=== PATIENT | male | born 1975 | race African-American/Black ===

== ENCOUNTER → 2016-06-02 | Emergency (ER) | payer BC, OTHER ==
[~2016-06-02] MED LIST: IBUPROFEN 600 MG TABLET (FP) PO ONE; KETOROLAC TROMETHAMINE 30 MG/1 ML VIAL IVPUSH ONE; KETOROLAC TROMETHAMINE 30 MG/1 ML VIAL ONE
[2016-06-02 17:04] VITALS: BP 122/69; PULSE 62; TEMP 97.7
[2016-06-02 17:05] VITALS: BMI 33.1
--- NOTE | 2016-06-02 18:10 | PDOC ---
[id number] CHEST PAIN Time Seen by Provider: 06/02/16 17:25 History Source: Patient Exam Limitations: No Limitations - History of Present Illness Initial Comments: 06/02/16 18:10 40 yo M non-smoker with pmhx of HTN presents with with few hour history of worsening chest pain. He describes 6/10 constant non-radiating left sternal border chest pressure. No alleviating or aggravating factors. He states it is unrelated to activity. It has been off and on for over a year. He feels that it comes during times of emotional stress. Pain somewhat is reproducible with deep palpation. No significant family history of CAD or ASCVD. Denies SOB, diaphoresis, fevers, ZHOU, abd. pain, N/V. Presenting Symptoms: Chest Pain Timing/Duration: reports: constant Severity/Quality: reports: pressure Location: reports: substernal Chest Pain Radiation: reports: no radiation Activities at Onset: reports: no specific activity Prior Chest Pain/Cardiac Workup: denies: Pulmonary Embolism Past History - Travel Traveled outside of the country in the last 30 days: No Close contact w/someone who was outside of country & ill: No - Past Medical History Allergies/Adverse Reactions: Allergies Allergy/AdvReac Type Severity Reaction Status Date / Time Penicillins Allergy Verified 06/02/16 17:04 Home Medications: Ambulatory Orders NK [No Known Home Medication] 06/02/16 Suicide Attempt (Hx): No Other medical history: denies - Psycho/Social/Smoking Cessation Hx Anxiety: No Suicidal Ideation: No Smoking Status: No Smoking History: Former smoker Have you smoked in the past 12 months: No Number of Cigarettes Smoked Daily: 0 Information on smoking cessation initiated: No Hx Alcohol Use: No Drug/Substance Use Hx: No Substance Use Type: None Cardiac Specific PMH - Complaint Specific PMHX Cardiac Stent: No GERD: No Myocardial Infarction: No Review of Systems - Review of Systems Able to Perform ROS?: Yes Is the patient limited Lebanese proficient: No Constitutional: No: Diaphoresis, Fever Respiratory: No: Cough, Shortness of Breath, SOB with Exertion Cardiac (ROS): Yes: Chest Pain. No: Edema, Palpitations ABD/GI: No: Nausea, Vomiting All Other Systems: Reviewed and Negative *Physical Exam - Vital Signs Last Vital Signs Temp Pulse Resp BP Pulse Ox 97.7 F 62 19 122/69 97 06/02/16 17:02 06/02/16 17:02 06/02/16 17:02 06/02/16 17:02 06/02/16 17:02 - Physical Exam General Appearance: Yes: Nourished. No: Apparent Distress HEENT: positive: EOMI, THERESE Neck: positive: Supple Respiratory/Chest: positive: Chest Tender, Lungs Clear, Normal Breath Sounds. negative: Respiratory Distress, Accessory Muscle Use Cardiovascular: positive: Regular Rhythm, Regular Rate, S1, S2. negative: Edema , JVD, Murmur Vascular Pulses: Dorsalis-Pedis (R): 2+, Doralis-Pedis (L): 2+ Gastrointestinal/Abdominal: positive: Normal Bowel Sounds, Flat, Soft Musculoskeletal: positive: Normal Inspection, CVA Tenderness Extremity: positive: Normal Inspection, Normal Range of Motion Integumentary: positive: Normal Color, Dry, Warm. negative: Cyanotic, Erythema , Jaundice Neurologic: positive: informix developer II-XII NML intact, Fully Oriented, Alert, Normal Mood/ Affect Heart Score/ECG Review - Age Age: </= 45 ED Treatment Course - LABORATORY CBC & Chemistry Diagram: 06/02/16 18:45 06/02/16 18:45 - ADDITIONAL ORDERS Additional order review: 06/02/16 18:45 RBC 4.51 MCV 93.9 MCHC 34.3 RDW 12.3 MPV 9.5 Neutrophils % 66.8 Lymphocytes % 22.3 Monocytes % 7.7 Eosinophils % 2.6 Basophils % 0.6 - Medications Given in the ED: ED Medications Discontinued Medications Generic Name Dose Route Start Last Admin Trade Name Freq PRN Reason Stop Dose Admin Ibuprofen 600 mg 06/02/16 18:30 06/02/16 19:17 Motrin - PO 06/02/16 18:31 Not Given ONCE ONE Ketorolac Tromethamine 30 mg 06/02/16 18:05 06/02/16 18:29 Toradol Injection - IVPUSH 06/02/16 18:06 Not Given ONCE ONE Medical Decision Making - Medical Decision Making 06/02/16 18:25 40 yo M non-smoker with pmhx of HTN presents with with few hour history of worsening chest pain. Most likely non-cardiac. Ordered EKG and stat labs(cbc,cmp ,and trops.) *DC/Admit/Observation/Transfer Diagnosis at time of Disposition: Atypical chest pain - Discharge Dispostion Disposition: HOME Condition at time of disposition: Good - Referrals Referrals: Antnoi Lu MD [Staff Physician] - - Patient Instructions Printed Discharge Instructions: DI for Atypical Chest Pain Additional Instructions: You have been given a copy of your EKG and blood work. Please make an appointment with a editor in chief newspaper.
--- NOTE | 2016-06-02 18:43 | PDOC ---
Attending Attestation - Resident Resident Name: Peyman Gross - ED Attending Attestation I have performed the following: I have examined & evaluated the patient, The case was reviewed & discussed with the resident, I agree w/resident's findings & plan, Exceptions are as noted - HPI HPI: 06/02/16 18:40 40-year-old male with past medical history of hypertension, suppurative hidradenitis presents with chest pain. Patient reports an atypical chest pain for years. Reports is intermittent but not exertional. Does not known inciting or exacerbating factor. Has not seen a doctor for this. Reported 2:30 PM today, patient noted similar symptoms today and his insisted that he comes to the ED for an evaluation. No exertional effect, no shortness of breath no nausea, vomiting, diaphoresis. Denies radiation. Denies family history of sudden cardiac or cardiac disease. Denies smoking history. Patient reports that this is similar to all his prior chest pains that he has. - Physicial Exam PE: 06/02/16 18:42 GENERAL: Awake, alert, and fully oriented, in no acute distress. HEAD: No signs of trauma EYES: PERRLA, EOMI, sclera anicteric, conjunctiva clear ENT: Auricles normal inspection, hearing grossly normal, nares patent, oropharynx clear without exudates. NECK: Normal ROM, supple, no lymphadenopathy, JVD, or masses LUNGS: Breath sounds equal, clear to auscultation bilaterally. No wheezes, and no crackles HEART: Regular rate and rhythm, normal S1 and S2, no murmurs, rubs or gallops ABDOMEN: Soft, nontender, normoactive bowel sounds. No guarding, no rebound. No masses EXTREMITIES: Normal range of motion, no edema. No clubbing or cyanosis. No cords, erythema, or tenderness NEUROLOGICAL: Cranial nerves II through XII grossly intact. Normal speech, normal gait SKIN: Warm, Dry, normal turgor, no rashes or lesions noted. - Medical Decision Making 06/02/16 18:42 Patient's chest pain is atypical and has been long-standing for year. Unlikely to be acute coronary syndrome at this time. We'll draw one troponin and EKG and labs. If workup is negative, we'll discharge patient with cardiology follow-up. Heart Score/ECG Review - History History: Slightly suspicious - Electrocardiogram EKG: Normal - Age Age: </= 45 - Risk Factors Risk Factors Heart Score: Yes Hx Hypertension Based on the list above the patient has:: 1-2 risk factors - Troponin Troponin: </= normal limit - Score Heart Score - Total: 1 #1 ECG reviewed & interpreted by me at: 17:10 06/02/16 18:43 NSR 63, LVH, TWI III, no std/suze, normal axis, normal intervals, QTC 401 msec
[2016-06-02 19:06] LABS: BASOPHIL 0.6 % (0-2.0); EOSINOPHIL 2.6 % (0-4.5); MCH 32.3 pg (25.7-33.7); MCHC 34.3 g/dl (32.0-35.9); MEAN CELL VOLUME 93.9 fl (80-96); MEAN PLT VOLUME 9.5 fl (7.5-11.1); NEUTROPHILS 66.8 % (42.8-82.8); PLATELET COUNT 203 K/MM3 (134-434); RDW 12.3 % (11.9-15.9); WHITE BLOOD COUNT 10.3 K/mm3 (4.0-10.0)
[2016-06-02 19:33] LABS: ALBUMIN 3.8 g/dl (3.4-5.0); ANION GAP 9 (8-16); BILIRUBIN,TOTAL 0.4 mg/dL (0.2-1.0); CALCIUM 9.2 mg/dL (8.5-10.1); CO2 27 mmol/L (21-32); COCKROFT - GAULT 187.35; CREATININE 0.9 mg/dL (0.7-1.3); GLUCOSE,RANDOM 211 mg/dL (74-106); SGOT/AST 34 U/L (15-37); SGPT/ALT 35 U/L (12-78)
[2016-06-02 19:36] LABS: ALK PHOS 78 U/L (45-117); TOT PROT 6.9 g/dl (6.4-8.2); TROPONIN I < 0.02 ng/ml (0.00-0.05)
--- NOTE | 2016-06-02 19:46 | PDOC ---
*Physical Exam - Vital Signs Last Vital Signs Temp Pulse Resp BP Pulse Ox 97.7 F 62 19 122/69 97 06/02/16 17:02 06/02/16 17:02 06/02/16 17:02 06/02/16 17:02 06/02/16 17:02 ED Treatment Course - LABORATORY CBC & Chemistry Diagram: 06/02/16 18:45 06/02/16 18:45 - ADDITIONAL ORDERS Additional order review: Laboratory Results 06/02/16 18:45 Sodium 139 Potassium 4.4 Chloride 103 Carbon Dioxide 27 Anion Gap 9 BUN 31 H D Creatinine 0.9 Creat Clearance w eGFR > 60 Random Glucose 211 H D Calcium 9.2 Total Bilirubin 0.4 D AST 34 D ALT 35 D Alkaline Phosphatase 78 Troponin I < 0.02 Total Protein 6.9 Albumin 3.8 06/02/16 18:45 RBC 4.51 MCV 93.9 MCHC 34.3 RDW 12.3 MPV 9.5 Neutrophils % 66.8 Lymphocytes % 22.3 Monocytes % 7.7 Eosinophils % 2.6 Basophils % 0.6 - Medications Given in the ED: ED Medications Discontinued Medications Generic Name Dose Route Start Last Admin Trade Name Freq PRN Reason Stop Dose Admin Ibuprofen 600 mg 06/02/16 18:30 06/02/16 19:17 Motrin - PO 06/02/16 18:31 Not Given ONCE ONE Ketorolac Tromethamine 30 mg 06/02/16 18:05 06/02/16 18:29 Toradol Injection - IVPUSH 06/02/16 18:06 Not Given ONCE ONE Medical Decision Making - Medical Decision Making 06/02/16 19:42 CBC, BMP 06/02/16 18:45 06/02/16 18:45 CMP Sodium 139 mmol/L (136-145) 06/02/16 18:45 Potassium 4.4 mmol/L (3.5-5.1) 06/02/16 18:45 Chloride 103 mmol/L (98-107) 06/02/16 18:45 Carbon Dioxide 27 mmol/L (21-32) 06/02/16 18:45 Anion Gap 9 (8-16) 06/02/16 18:45 BUN 31 mg/dL (7-18) H D 06/02/16 18:45 Creatinine 0.9 mg/dL (0.7-1.3) 06/02/16 18:45 Creat Clearance w eGFR > 60 (>60) 06/02/16 18:45 Random Glucose 211 mg/dL (74-106) H D 06/02/16 18:45 Calcium 9.2 mg/dL (8.5-10.1) 06/02/16 18:45 Total Bilirubin 0.4 mg/dL (0.2-1.0) D 06/02/16 18:45 AST 34 U/L (15-37) D 06/02/16 18:45 ALT 35 U/L (12-78) D 06/02/16 18:45 Alkaline Phosphatase 78 U/L (45-117) 06/02/16 18:45 Troponin I < 0.02 ng/ml (0.00-0.05) 06/02/16 18:45 Total Protein 6.9 g/dl (6.4-8.2) 06/02/16 18:45 Albumin 3.8 g/dl (3.4-5.0) 06/02/16 18:45 Trop negative. The patient denies any chest pain. Results of the work given to him. EKG, given 2. I will give the patient referral to cardiology. I discussed the physical exam findings, ancillary test results and final diagnoses with the patient. I answered all of the patient's questions. The patient was satisfied with the care received and felt comfortable with the discharge plan and treatment plan. The patient will call their primary care physician within 24 hours to arrange follow-up and will return to the Emergency Department with any new, persistant or worsening symptoms. *DC/Admit/Observation/Transfer Diagnosis at time of Disposition: Atypical chest pain - Discharge Dispostion Disposition: HOME Condition at time of disposition: Good Admit: No - Referrals Referrals: Antoni Lu MD [Staff Physician] - - Patient Instructions Printed Discharge Instructions: DI for Atypical Chest Pain Additional Instructions: You have been given a copy of your EKG and blood work. Please make an appointment with a exceptional student education aide.
--- NOTE | 2016-06-07 12:19 | EKG ---
Test Reason : Blood Pressure : / mmHG Vent. Rate : 063 BPM Atrial Rate : 063 BPM P-R Int : 194 ms QRS Dur : 086 ms QT Int : 392 ms P-R-T Axes : 023 004 -07 degrees QTc Int : 401 ms NORMAL SINUS RHYTHM POSSIBLE LEFT ATRIAL ENLARGEMENT LEFT VENTRICULAR HYPERTROPHY ABNORMAL ECG WHEN COMPARED WITH ECG OF 03-NOV-2012 22:31, NO SIGNIFICANT CHANGE WAS FOUND Confirmed by JAYLYN MCELROY MD ([id number]) on 06/07/2016 12:18:52 PM Referred By: Confirmed By:JAYLYN MCELROY MD
== END | disposition home or self-care (01) ==
LOC: JER 16:59
DX: R07.89 Other chest pain (principal); I10 Essential (primary) hypertension
CPT/HCPCS: 36415; 80053; 84484; 85025; 93005; 93010; 99283-25

== ENCOUNTER 2018-10-19 10:56 | Emergency (ER) | payer OTHER ==
[2018-10-19 11:04] VITALS: BP 148/91; PULSE 60; TEMP 97.8; BMI 29.9
--- NOTE | 2018-10-19 12:23 | EKG ---
Test Reason : Blood Pressure : / mmHG Vent. Rate : 059 BPM Atrial Rate : 059 BPM P-R Int : 206 ms QRS Dur : 090 ms QT Int : 396 ms P-R-T Axes : 048 039 012 degrees QTc Int : 392 ms SINUS BRADYCARDIA POSSIBLE LEFT ATRIAL ENLARGEMENT BORDERLINE ECG WHEN COMPARED WITH ECG OF 02-JUN-2016 17:09, NO SIGNIFICANT CHANGE WAS FOUND Confirmed by CONCEPCION WHIPPLE MD ([id number]) on 10/19/2018 12:23:02 PM Referred By: Confirmed By:CONCEPCION WHIPPLE MD
[2018-10-19 12:37] LABS: BASO % 0.2 % (0-2.0); EOS % 1.9 % (0-4.5); HEMATOCRIT 45.1 % (35.4-49); HEMOGLOBIN 15.1 GM/dL (11.7-16.9); LYMPH % 24.4 % (8-40); MCH 31.9 pg (25.7-33.7); MCHC 33.5 g/dl (32.0-35.9); MEAN CELL VOLUME 95.2 fl (80-96); MEAN PLT VOLUME 9.5 fl (7.5-11.1); MONO % 6.1 % (3.8-10.2); NEUT % 67.4 % (42.8-82.8); PLATELET COUNT 212 K/MM3 (134-434); RBC 4.74 M/mm3 (4.00-5.60); RDW 12.4 % (11.9-15.9); WHITE BLOOD COUNT 6.7 K/mm3 (4.0-10.0)
--- NOTE | 2018-10-19 12:48 | PDOC ---
History of Present Illness - General Chief Complaint: Chest Pain Stated Complaint: CHEST PAIN Time Seen by Provider: 10/19/18 11:21 History Source: Patient Exam Limitations: No Limitations Past History - Past Medical History Allergies/Adverse Reactions: Allergies Allergy/AdvReac Type Severity Reaction Status Date / Time Penicillins Allergy Verified 10/19/18 11:04 Home Medications: Ambulatory Orders NK [No Known Home Medication] 06/02/16 COPD: No HTN: Yes (not on meds) - Suicide/Smoking/Psychosocial Hx Smoking Status: No Smoking History: Never smoked Have you smoked in the past 12 months: No Number of Cigarettes Smoked Daily: 0 Information on smoking cessation initiated: No Hx Alcohol Use: No Drug/Substance Use Hx: No Substance Use Type: None Cardiac Specific PMH - Complaint Specific PMHX Cardiac Stent: No GERD: No *Physical Exam - Vital Signs Last Vital Signs Temp Pulse Resp BP Pulse Ox 97.8 F 60 18 148/91 100 10/19/18 11:00 10/19/18 11:00 10/19/18 11:00 10/19/18 11:00 10/19/18 11:00 - Physical Exam General Appearance: No: Apparent Distress Respiratory/Chest: positive: Lungs Clear, Normal Breath Sounds. negative: Chest Tender, Respiratory Distress Cardiovascular: positive: Regular Rhythm, Regular Rate, S1, S2. negative: Murmur Gastrointestinal/Abdominal: positive: Normal Bowel Sounds, Soft. negative: Tender, Distended, Guarding, Rebound Extremity: negative: Pedal Edema, Swelling, Calf Tenderness Neurologic: positive: Alert, Normal Mood/Affect Heart Score/ECG Review - History History: Slightly suspicious - Electrocardiogram EKG: Normal - Age Age: </= 45 - Risk Factors Based on the list above the patient has:: No risk factors known - Troponin Troponin: </= normal limit - Score Heart Score - Total: 0 ED Treatment Course - LABORATORY CBC & Chemistry Diagram: 10/19/18 11:49 10/19/18 11:49 - ADDITIONAL ORDERS Additional order review: Laboratory Results 10/19/18 10/19/18 11:49 11:49 Sodium 143 Potassium 4.7 Chloride 104 Carbon Dioxide 29 Anion Gap 10 BUN 10.9 Creatinine 1.0 Est GFR (CKD-EPI)AfAm 107.12 Est GFR (CKD-EPI)NonAf 92.42 Random Glucose 79 Calcium 9.5 Total Bilirubin 0.8 AST 22 ALT 29 Alkaline Phosphatase 64 Troponin I 0.02 Total Protein 7.9 Albumin 4.3 10/19/18 11:49 RBC 4.74 MCV 95.2 MCHC 33.5 RDW 12.4 MPV 9.5 Neutrophils % 67.4 Lymphocytes % 24.4 Monocytes % 6.1 Eosinophils % 1.9 Basophils % 0.2 - RADIOLOGY Radiology Studies Ordered: Category Date Time Status CHEST PA & LAT [RAD] Stat Radiology 10/19/18 11:24 Completed Medical Decision Making - Medical Decision Making 43 yo M [employer] with no sig pmh presnets with sharp substernal CP, nonradiating, intermittent in nature, nonexertional, which started yesterday while he was driving along with mild SOB. Denies fever, cough, abd pain, vomiting, pedal edema, calf pain. Denies smoking or drug use. +Social alcohol use. Was here 2 years ago for chest pain as well; states pain is slightly similar. Had TMST around ?5 years ago which was normal. Denies FH of CAD or [place] Consider ACS EKG: Sinus bradycardia at 59 bpm, TWI lead III (seen in prior EKG as well) CXR negative Labs pending 10/19/18 12:45 Trop neg Heart score 0 stable for dc 10/19/18 13:18 *DC/Admit/Observation/Transfer Diagnosis at time of Disposition: Chest pain Qualifiers: Chest pain type: unspecified Qualified Code(s): R07.9 - Chest pain, unspecified - Discharge Dispostion Disposition: HOME Condition at time of disposition: Stable Decision to Admit order: No - Referrals - Patient Instructions Printed Discharge Instructions: DI for Chest Pain Additional Instructions: Thank you for choosing [facility]. It was a pleasure taking care of you. Your labwork was unremarkable Please follow-up with primary care doctor in 2-3 days Return to the Emergency Department if your symptoms worsen or persist, you have fever, shortness of breath, chest pain, severe abdominal pain, vomiting or other concerning symptoms. - Post Discharge Activity
[2018-10-19 13:04] LABS: ALBUMIN 4.3 g/dl (3.4-5.0); BILIRUBIN,TOTAL 0.8 mg/dL (0.2-1); BLOOD UREA NITROGEN 10.9 mg/dL (7-18); CALCIUM 9.5 mg/dL (8.5-10.1); POTASSIUM 4.7 mmol/L (3.5-5.1); TOT PROT 7.9 g/dl (6.4-8.2)
== END 2018-10-19 13:31 | disposition home or self-care (01) ==
LOC: JER 10:56
DX: R07.9 Chest pain, unspecified (principal); I10 Essential (primary) hypertension
CPT/HCPCS: 36415; 71046-TC-FY; 80053; 84484; 85025; 93005; 93010; 99282-25